=== PATIENT | male | born 1950 | race Two or more races ===

== ENCOUNTER 2023-12-26 09:19 | Inpatient (IN) | payer OTHER ==
[~2023-12-26] VITALS: Ht 175.3 cm; Wt 78.0 kg
[2023-12-26] MEDS: SODIUM CHLORIDE 0.9% 1,000 ML IV SCH (08:00)
[2023-12-26 10:07] LABS: Basophils # (auto) 0 10 ^3/uL (0-0.2); Basophils % (auto) 0.1 % (0.0-2.0); Eosinophils # (auto) 0 10 ^3/uL (0-0.8); Eosinophils % (auto) 0.3 % (0.0-7.0); Hematocrit 48.2 % (41.0-53.0); Hemoglobin 15.8 g/dL (13.5-17.5); Lymphocytes % (auto) 17.8 % (10.0-50.0); Mean Corpuscular Hgb Conc. 32.7 g/dL (32.0-36.0); Mean Corpuscular Volume 85.8 fL (80.0-100.0); Monocytes # (auto) 1.9 10 ^3/uL (0-1.3); Monocytes % (auto) 16.9 % (0.0-12.0); Neutrophils # (auto) 7.4 10 ^3/uL (1.6-8.6); Neutrophils % (auto) 64.9 % (37.0-80.0); Nucleated Red Blood Cells % 0.1 %; Red Blood Cells 5.62 10^6/uL (4.5-5.90); White Blood Cell 11.4 10^3/uL (4.4-10.8)
[2023-12-26 10:23] LABS: Alanine Aminotransferase 70 U/L (7-40); Albumin 4.9 g/dL (3.2-4.8); Alkaline Phosphatase 73 U/L (46-116); Anion Gap 8 (5-15); Aspartate Aminotransferase 35 U/L (13-40); BUN/Creatinine Ratio 17.8 (10.0-20.0); Blood Urea Nitrogen 28 mg/dL (9-23); Calcium 12.3 mg/dL (8.5-10.1); Carbon Dioxide 39 mmol/L (20-30); Chloride 86 mmol/L (98-107); Glucose 178 mg/dL (74-106); Sodium 133 mmol/L (136-145)
[2023-12-26 10:24] LABS: Bilirubin, Total 0.8 mg/dL (0.2-1.0); Total Protein 7.1 g/dL (5.7-8.2)
[2023-12-26 10:35] LABS: Urine Bacteria NONE SEEN /hpf (None Seen); Urine Blood Negative /uL (Negative); Urine Clarity HAZY (Clear); Urine Color Yellow (Yellow); Urine Hyaline Cast MANY /lpf (0 - 2); Urine Mucus FEW (None Seen); Urine Protein, UAD 1+ (Negative); Urine Specific Gravity 1.026 (1.001-1.035); Urine WBC 1 /hpf (0 - 3); Urine pH 5.5 (5.0-8.0)
[2023-12-26] MEDS ORDERED: DOCUSATE SOD 100 MG CAP PO PRN (14:15)
[2023-12-26] MEDS ORDERED: DEXTROSE (50%) 50ML SYRG IV PRN (14:15)
[2023-12-26] MEDS: PIPERACILLIN-TAZOB 3.375GM 100 ML IV ONE (14:15)
[2023-12-26 17:25] LABS: Sodium Urine < 10 mmol/L (40-220)
[2023-12-26] MEDS: SODIUM CHLORIDE 0.9% 2,000 ML IV ONE (20:19)
[2023-12-26] MEDS: InsuLIN REG 1unit/0.01ml Soln (100units/ml) SC SCH (20:25)
[2023-12-26] MEDS: ACCU-CHEK COMFORT CURVE STRIP VI SCH (20:25)
[2023-12-26 22:22] VITALS: PULSE 85; RESP 19; O2SAT 97
[2023-12-27] VITALS (8 sets, daily range): BP systolic 118–127; BP diastolic 64–75; PULSE 67–89; RESP 16–19; TEMP 97.8–98.4; O2SAT 88–96
[2023-12-27] MEDS: PIPERACILLIN-TAZOB 3.375GM 100 ML IV SCH (00:15)
[2023-12-27 06:01] LABS: Hematocrit 43.6 % (41.0-53.0); Mean Corpuscular Hemoglobin 28.2 pg (28.0-32.0); Mean Corpuscular Hgb Conc. 32.2 g/dL (32.0-36.0); Mean Corpuscular Volume 87.5 fL (80.0-100.0); Red Blood Cells 4.98 10^6/uL (4.5-5.90); White Blood Cell 10.4 10^3/uL (4.4-10.8)
[2023-12-27 06:10] LABS: Basophils % (manual) 0 (0.0-2.0); Blast Cells 0; Metamyelocytes % 0; Myelocytes % 0; Promyelocytes % 0; Reactive Lymphocytes 0
[2023-12-27 06:21] LABS: Alanine Aminotransferase 57 U/L (7-40); Alkaline Phosphatase 60 U/L (46-116); Anion Gap 6 (5-15); Aspartate Aminotransferase 31 U/L (13-40); BUN/Creatinine Ratio 28.5 (10.0-20.0); Blood Urea Nitrogen 39 mg/dL (9-23); Calcium 10.3 mg/dL (8.7-10.4); Carbon Dioxide 37 mmol/L (20-30); Chloride 92 mmol/L (98-107); Glucose 126 mg/dL (74-106); Potassium 3.7 mmol/L (3.5-5.1); Sodium 135 mmol/L (136-145); Total Protein 6.1 g/dL (5.7-8.2)
[2023-12-27 06:22] LABS: Bilirubin, Total 0.9 mg/dL (0.2-1.0)
[2023-12-27 06:49] LABS: Band Neutrophils % (manual) 33; Eosinophils % (manual) 3 (0-7); Lymphocytes % (manual) 15 (10.0-50.0); Monocytes % (manual) 21 (0-12); Platelet Estimate Adequate
[2023-12-27] MEDS: PANTOPRAZOLE 40 MG/10 ML VIAL INJ IV SCH (09:24)
[2023-12-27 10:00] LABS: Amphetamine Screen, Urine Neg (NEGATIVE); Benzodiazephine Screen, Urine Neg (NEGATIVE)
[2023-12-27 10:01] LABS: Barbiturate Scree,Urine Neg (NEGATIVE); Cannabinoid Screen, Urine Neg (NEGATIVE); Cocaine Screen, Urine Neg (NEGATIVE); Opiate Scree,Urine Neg (NEGATIVE); Phencyclidine Screen, Urine Neg (NEGATIVE)
[2023-12-27 12:18] LABS: INR 1.03 (0.9-1.15); Partial Thromboplastin Time 27.3 SEC (24.5-34.5); Prothrombin Time 10.8 sec (9.3-11.8)
[2023-12-27 15:21] LABS: Chloride 95 mmol/L (98-107); Potassium 3.8 mmol/L (3.5-5.1); Sodium 136 mmol/L (136-145)
[2023-12-27 15:22] LABS: Anion Gap 6 (5-15); Calcium 9.8 mg/dL (8.7-10.4); Carbon Dioxide 35 mmol/L (20-30)
[2023-12-27 15:27] LABS: Blood Urea Nitrogen 32 mg/dL (9-23); Glucose 117 mg/dL (74-106)
[2023-12-28] VITALS (7 sets, daily range): BP systolic 126–137; BP diastolic 70–85; PULSE 83–89; RESP 16–20; TEMP 98–98.5; O2SAT 91–98
[2023-12-28 06:22] LABS: Hematocrit 42.5 % (41.0-53.0); Hemoglobin 13.6 g/dL (13.5-17.5); Mean Corpuscular Hgb Conc. 31.9 g/dL (32.0-36.0); Mean Corpuscular Volume 87.6 fL (80.0-100.0); Red Blood Cells 4.85 10^6/uL (4.5-5.90); Red Cell Distribution Width 12.8 % (11.8-14.3); White Blood Cell 12.5 10^3/uL (4.4-10.8)
[2023-12-28 06:31] LABS: Anion Gap 4 (5-15); Carbon Dioxide 35 mmol/L (20-30); Chloride 99 mmol/L (98-107); Potassium 4.1 mmol/L (3.5-5.1); Sodium 138 mmol/L (136-145)
[2023-12-28 06:32] LABS: Calcium 9.4 mg/dL (8.7-10.4)
[2023-12-28 06:37] LABS: BUN/Creatinine Ratio 26.4 (10.0-20.0); Blood Urea Nitrogen 29 mg/dL (9-23); Glucose 88 mg/dL (74-106)
[2023-12-28 06:38] LABS: Magnesium 2.3 mg/dL (1.6-2.6)
[2023-12-28 06:55] LABS: Basophils % (manual) 0 (0.0-2.0); Blast Cells 0; Myelocytes % 0; Reactive Lymphocytes 0
[2023-12-28 14:49] LABS: Band Neutrophils % (manual) 9; Eosinophils % (manual) 3 (0-7); Lymphocytes % (manual) 18 (10.0-50.0); Metamyelocytes % 1; Monocytes % (manual) 21 (0-12); Promyelocytes % 5
[2023-12-28 14:50] LABS: Platelet Estimate Adequate
[2023-12-28] MEDS ORDERED: CLINIMIX PER PHARMACY 0 ML IV SCH (15:30)
[2023-12-28 16:30] LABS: Bilirubin, Direct 0.2 mg/dL (<0.3); Bilirubin, Total 0.5 mg/dL (0.2-1.0); Phosphorus 2.8 mg/dL (2.4-5.1); Total Protein 5.9 g/dL (5.7-8.2)
[2023-12-28] MEDS: AMINO ACID INFUSION IN D10W 1,000 ML IV SCH (20:31)
[2023-12-29] VITALS (7 sets, daily range): BP systolic 113–149; BP diastolic 68–76; PULSE 80–103; RESP 16–18; TEMP 98–98.2; O2SAT 91–99
[2023-12-29] MEDS ORDERED: DEXTROSE (50%) 50ML SYRG IV SCH
[2023-12-29] MEDS: ACCU-CHEK COMFORT CURVE STRIP VI SCH (00:29)
[2023-12-29] MEDS: InsuLIN REG 1unit/0.01ml Soln (100units/ml) SC SCH (00:32)
[2023-12-29 06:45] LABS: Hematocrit 39.7 % (41.0-53.0); Mean Corpuscular Hemoglobin 28.6 pg (28.0-32.0); Mean Corpuscular Hgb Conc. 32.7 g/dL (32.0-36.0); Mean Corpuscular Volume 87.4 fL (80.0-100.0); Red Blood Cells 4.54 10^6/uL (4.5-5.90); Red Cell Distribution Width 12.5 % (11.8-14.3); White Blood Cell 9.8 10^3/uL (4.4-10.8)
[2023-12-29 07:02] LABS: Alanine Aminotransferase 24 U/L (7-40); Albumin 3.7 g/dL (3.2-4.8); Alkaline Phosphatase 49 U/L (46-116); Anion Gap 5 (5-15); Aspartate Aminotransferase 13 U/L (13-40); BUN/Creatinine Ratio 25.6 (10.0-20.0); Blood Urea Nitrogen 23 mg/dL (9-23); Calcium 8.8 mg/dL (8.7-10.4); Carbon Dioxide 32 mmol/L (20-30); Chloride 102 mmol/L (98-107); Glucose 135 mg/dL (74-106); Magnesium 2.1 mg/dL (1.6-2.6); Potassium 3.7 mmol/L (3.5-5.1); Sodium 139 mmol/L (136-145)
[2023-12-29 07:03] LABS: Bilirubin, Total 0.4 mg/dL (0.2-1.0); Phosphorus 2.2 mg/dL (2.4-5.1); Total Protein 5.7 g/dL (5.7-8.2)
[2023-12-29 07:50] LABS: Basophils % (manual) 0 (0.0-2.0); Blast Cells 0; Reactive Lymphocytes 0
[2023-12-29] MEDS: GASTROGRAFIN 120 ML SOL ONE (13:37)
[2023-12-29 14:22] LABS: Band Neutrophils % (manual) 13; Eosinophils % (manual) 3 (0-7); Lymphocytes % (manual) 29 (10.0-50.0); Metamyelocytes % 1; Monocytes % (manual) 12 (0-12); Myelocytes % 1; Promyelocytes % 2
[2023-12-29 14:23] LABS: Platelet Estimate Adequate
[2023-12-29] MEDS: POTASSIUM PHOSPHATE 22 MEQ in SODIUM CHL 0.9% 100 ML IV ONE (15:56)
[2023-12-30] VITALS (7 sets, daily range): BP systolic 105–126; BP diastolic 58–83; PULSE 85–118; RESP 16–22; TEMP 97.9–100; O2SAT 81–96
[2023-12-30] MEDS: ONDANSETRON HCL 4 MG/2 ML VIAL IV PRN (02:37)
[2023-12-30 05:11] LABS: Hematocrit 47.9 % (41.0-53.0); Hemoglobin 15.5 g/dL (13.5-17.5); Mean Corpuscular Hemoglobin 28.4 pg (28.0-32.0); Mean Corpuscular Hgb Conc. 32.3 g/dL (32.0-36.0); Mean Corpuscular Volume 87.9 fL (80.0-100.0); Red Blood Cells 5.45 10^6/uL (4.5-5.90); Red Cell Distribution Width 12.6 % (11.8-14.3); White Blood Cell 15.6 10^3/uL (4.4-10.8)
[2023-12-30 05:13] LABS: Alanine Aminotransferase 86 U/L (7-40); Alkaline Phosphatase 88 U/L (46-116); Anion Gap 8 (5-15); Aspartate Aminotransferase 95 U/L (13-40); Blood Urea Nitrogen 25 mg/dL (9-23); Calcium 9.9 mg/dL (8.7-10.4); Carbon Dioxide 30 mmol/L (20-30); Chloride 102 mmol/L (98-107); Glucose 166 mg/dL (74-106); Magnesium 2.3 mg/dL (1.6-2.6); Potassium 3.8 mmol/L (3.5-5.1); Sodium 140 mmol/L (136-145)
[2023-12-30 05:14] LABS: Albumin 4.7 g/dL (3.2-4.8); Bilirubin, Total 0.7 mg/dL (0.2-1.0); Phosphorus 3.1 mg/dL (2.4-5.1); Total Protein 7.3 g/dL (5.7-8.2)
[2023-12-30 05:20] LABS: Basophils % (manual) 0 (0.0-2.0); Blast Cells 0; Metamyelocytes % 0; Promyelocytes % 0; Reactive Lymphocytes 0
[2023-12-30 06:54] LABS: Band Neutrophils % (manual) 11; Eosinophils % (manual) 2 (0-7); Lymphocytes % (manual) 18 (10.0-50.0); Monocytes % (manual) 13 (0-12); Myelocytes % 2; Platelet Estimate Adequate
[2023-12-30] MEDS ORDERED: MIDAZOLAM HCL 2MG/2ML 2ml VIAL (1mg/ml) ONE (12:29)
[2023-12-30] MEDS ORDERED: KETAMINE 50mg/ML 10ml Vial 0 ML ONE (12:29)
[2023-12-30] MEDS ORDERED: fentaNYL CITRATE 0 ML ONE (12:29)
[2023-12-30] MEDS ORDERED: HYDROmorphone HCL 2 MG/ML VL/or syr ONE (12:29)
[2023-12-30] MEDS ORDERED: DexAMETHasone SOD PHOS 10MG/1ML VIAL INJ ONE (12:29)
[2023-12-30] MEDS ORDERED: fentaNYL CITRATE 100 MCG/2 ML VL ONE (12:29)
[2023-12-30] MEDS ORDERED: SODIUM CHLORIDE LOCK 0 ML ONE (12:29)
[2023-12-31] VITALS (10 sets, daily range): BP systolic 87–127; BP diastolic 60–85; PULSE 83–107; RESP 10–20; TEMP 97.8–98.5; O2SAT 94–98
[2023-12-31 06:11] LABS: Chloride 98 mmol/L (98-107); Potassium 3.5 mmol/L (3.5-5.1); Sodium 137 mmol/L (136-145)
[2023-12-31 06:12] LABS: Anion Gap 6 (5-15); Calcium 8.9 mg/dL (8.7-10.4); Carbon Dioxide 33 mmol/L (20-30)
[2023-12-31 06:16] LABS: Hematocrit 43.2 % (41.0-53.0); Mean Corpuscular Hemoglobin 28.5 pg (28.0-32.0); Mean Corpuscular Hgb Conc. 32.5 g/dL (32.0-36.0); Mean Corpuscular Volume 87.8 fL (80.0-100.0); Red Blood Cells 4.92 10^6/uL (4.5-5.90); Red Cell Distribution Width 12.7 % (11.8-14.3); White Blood Cell 26.9 10^3/uL (4.4-10.8)
[2023-12-31 06:17] LABS: BUN/Creatinine Ratio 29.7 (10.0-20.0); Blood Urea Nitrogen 33 mg/dL (9-23); Glucose 159 mg/dL (74-106); Magnesium 2.4 mg/dL (1.6-2.6)
[2023-12-31 06:35] LABS: Band Neutrophils % (manual) 0; Basophils % (manual) 0 (0.0-2.0); Blast Cells 0; Eosinophils % (manual) 0 (0-7); Metamyelocytes % 0; Myelocytes % 0; Promyelocytes % 0; Reactive Lymphocytes 0
[2023-12-31 09:11] LABS: Lymphocytes % (manual) 11 (10.0-50.0); Monocytes % (manual) 9 (0-12); Platelet Estimate Adequate
[2023-12-31] MEDS: POTASSIUM PHOSPHATE 44 MEQ in D5W 5% 250 ML IV ONE (10:41)
[2023-12-31] MEDS ORDERED: METF-370 PO (12:19)
[2023-12-31] MEDS ORDERED: TAMS1CAP25 PO (12:19)
[2023-12-31] MEDS ORDERED: ASPI-543 PO (12:19)
[2023-12-31] MEDS ORDERED: ISOS5TAB PO (12:19)
[2023-12-31] MEDS ORDERED: DONE1TAB88 PO (12:19)
[2023-12-31] MEDS ORDERED: OXYB2.5T PO (12:19)
[2023-12-31] MEDS ORDERED: TICA90TA PO (12:19)
[2023-12-31] MEDS ORDERED: PROP1TAB53 PO (12:19)
[2023-12-31] MEDS ORDERED: FINA5TAB4 PO (12:19)
[2023-12-31] MEDS ORDERED: ALPR0.5T7 PO (12:19)
[2023-12-31 12:36] LABS: INR 1.08 (0.9-1.15); Partial Thromboplastin Time 29.8 SEC (24.5-34.5); Prothrombin Time 11.3 sec (9.3-11.8)
[2023-12-31] MEDS: metroNIDAZOLE 500MG/100ML 100 ML IV ONE (13:13)
[2023-12-31] MEDS ORDERED: MIDAZOLAM HCL 2MG/2ML 2ml VIAL (1mg/ml) ONE (13:23)
[2023-12-31] MEDS ORDERED: fentaNYL CITRATE 100 MCG/2 ML VL ONE (13:23)
[2023-12-31] MEDS ORDERED: MEPERIDINE HCL (50 MG/ML) 1 ML VIAL ONE (13:23)
[2023-12-31] MEDS ORDERED: DexAMETHasone SOD PHOS 10MG/1ML VIAL INJ ONE (14:42)
[2023-12-31] MEDS ORDERED: ONDANSETRON HCL 4 MG/2 ML VIAL ONE (14:42)
[2023-12-31] MEDS ORDERED: ETOMIDATE (2MG/ML) 20ML VIAL IV ONE (14:42)
[2023-12-31] MEDS ORDERED: ROCURONIUM 10MG/ML 10ML VIAL IV ONE (14:43)
[2023-12-31] MEDS ORDERED: LABETALOL HCL 5 MG/ML 4ML SYRINGE IV PRN (15:00)
[2023-12-31] MEDS ORDERED: ONDANSETRON HCL 4 MG/2 ML VIAL IV PRN ×2 (15:00→15:30)
[2023-12-31] MEDS ORDERED: MIDAZOLAM HCL 2MG/2ML 2ml VIAL (1mg/ml) IV PRN (15:00)
[2023-12-31] MEDS ORDERED: ePHEDrine SULFATE 50 MG/ML AMP IV PRN (15:00)
[2023-12-31] MEDS ORDERED: MORPHINE SULFATE 4 MG/ML SYR/VIAL IV PRN (15:00)
[2023-12-31] MEDS ORDERED: SUGAMMADEX 200mg/2ml Vial (100MG/ML) IV ONE (15:13)
[2023-12-31] MEDS: D5W/SOD CHL 0.45%/KCL 20MEQ 1,000 ML IV SCH (15:30)
[2023-12-31] MEDS: HYDROmorphone HCL 2 MG/ML VL/or syr IV PRN (16:22)
[2023-12-31] MEDS ORDERED: PHENYLEPHRINE HCL 10 MG/ML VL IV ONE (16:39)
[2023-12-31] MEDS ORDERED: SUCCINYLCHOLINE CHLORIDE 20 MG/ML 10ML VIAL IV ONE (16:39)
[2024-01-01] VITALS (17 sets, daily range): BP systolic 86–113; BP diastolic 44–67; PULSE 84–98; RESP 13–21; TEMP 97.7–98.9; O2SAT 90–99
[2024-01-01 06:17] LABS: Alanine Aminotransferase 92 U/L (7-40); Alkaline Phosphatase 68 U/L (46-116); Anion Gap 6 (5-15); Aspartate Aminotransferase 35 U/L (13-40); BUN/Creatinine Ratio 17.7 (10.0-20.0); Blood Urea Nitrogen 31 mg/dL (9-23); Carbon Dioxide 28 mmol/L (20-30); Chloride 99 mmol/L (98-107); Glucose 251 mg/dL (74-106); Magnesium 2.2 mg/dL (1.6-2.6); Potassium 4.1 mmol/L (3.5-5.1); Sodium 133 mmol/L (136-145)
[2024-01-01 06:18] LABS: Albumin 3.4 g/dL (3.2-4.8); Bilirubin, Total 0.5 mg/dL (0.2-1.0); Phosphorus 3.5 mg/dL (2.4-5.1); Total Protein 5.3 g/dL (5.7-8.2)
[2024-01-01 07:10] LABS: Hematocrit 44.2 % (41.0-53.0); Hemoglobin 13.7 g/dL (13.5-17.5); Mean Corpuscular Hemoglobin 28.2 pg (28.0-32.0); Mean Corpuscular Volume 90.8 fL (80.0-100.0); Red Blood Cells 4.87 10^6/uL (4.5-5.90); Red Cell Distribution Width 13.3 % (11.8-14.3)
[2024-01-01 07:34] LABS: White Blood Cell 31.4 10^3/uL (4.4-10.8)
[2024-01-01 07:36] LABS: Basophils % (manual) 0 (0.0-2.0); Blast Cells 0; Eosinophils % (manual) 0 (0-7); Metamyelocytes % 0; Myelocytes % 0; Promyelocytes % 0; Reactive Lymphocytes 0
[2024-01-01] MEDS: HYDROmorphone HCL 2 MG/ML VL/or syr IV PRN (08:06)
[2024-01-01 08:26] LABS: Band Neutrophils % (manual) 3; Lymphocytes % (manual) 9 (10.0-50.0); Monocytes % (manual) 4 (0-12)
[2024-01-01 08:27] LABS: Platelet Estimate Adequate; RBC Morphology Normal
[2024-01-01] MEDS: PANTOPRAZOLE 40 MG/10 ML VIAL INJ IV SCH (10:34)
[2024-01-01] MEDS: CALCIUM GLUC 1,000mg/50ml-NS 50 ML IV ONE (13:00)
[2024-01-01] MEDS: MORPHINE SULFATE INJ 2 MG/ml SYRG IV PRN (14:58)
[2024-01-01 20:14] LABS: Chloride 98 mmol/L (98-107); Potassium 4.2 mmol/L (3.5-5.1); Sodium 135 mmol/L (136-145)
[2024-01-01 20:15] LABS: Anion Gap 4 (5-15); Carbon Dioxide 33 mmol/L (20-30)
[2024-01-01 20:16] LABS: Calcium 8.6 mg/dL (8.5-10.1)
[2024-01-01 20:20] LABS: Glucose 162 mg/dL (74-106)
[2024-01-01 20:21] LABS: BUN/Creatinine Ratio 17.1 (10.0-20.0)
[2024-01-01 20:27] LABS: Blood Urea Nitrogen 43 mg/dL (9-23)
[2024-01-02] VITALS (20 sets, daily range): BP systolic 116–151; BP diastolic 56–76; PULSE 88–98; RESP 14–28; TEMP 98.5–100.4; O2SAT 92–99
[2024-01-02 06:31] LABS: Urine Amorphous Crystal FEW /hpf (None Seen); Urine Bacteria FEW /hpf (None Seen); Urine Blood 3+ /uL (Negative); Urine Clarity HAZY (Clear); Urine Color Yellow (Yellow); Urine Protein, UAD 1+ (Negative); Urine Specific Gravity 1.016 (1.001-1.035); Urine Urobilinogen Normal (Negative); Urine WBC 49 /hpf (0 - 3); Urine pH 5.5 (5.0-8.0)
[2024-01-02 10:43] LABS: Basophils # (auto) 0 10 ^3/uL (0-0.2); Basophils % (auto) 0.2 % (0.0-2.0); Eosinophils # (auto) 0 10 ^3/uL (0-0.8); Eosinophils % (auto) 0.2 % (0.0-7.0); Hematocrit 38.4 % (41.0-53.0); Hemoglobin 12.2 g/dL (13.5-17.5); Lymphocytes # (auto) 1.4 10 ^3/uL (0.4-5.4); Lymphocytes % (auto) 7.1 % (10.0-50.0); Mean Corpuscular Hemoglobin 28.1 pg (28.0-32.0); Mean Corpuscular Hgb Conc. 31.9 g/dL (32.0-36.0); Mean Corpuscular Volume 88.2 fL (80.0-100.0); Monocytes # (auto) 1.4 10 ^3/uL (0-1.3); Monocytes % (auto) 6.7 % (0.0-12.0); Neutrophils # (auto) 17.3 10 ^3/uL (1.6-8.6); Neutrophils % (auto) 85.8 % (37.0-80.0); Red Blood Cells 4.35 10^6/uL (4.5-5.90); Red Cell Distribution Width 12.9 % (11.8-14.3); White Blood Cell 20.2 10^3/uL (4.4-10.8)
[2024-01-02 11:00] LABS: INR 1.07 (0.9-1.15); Partial Thromboplastin Time 31.1 SEC (24.5-34.5); Prothrombin Time 11.2 sec (9.3-11.8)
[2024-01-02 11:03] LABS: Alanine Aminotransferase 46 U/L (7-40); Albumin 3.4 g/dL (3.2-4.8); Alkaline Phosphatase 60 U/L (46-116); Anion Gap 6 (5-15); Aspartate Aminotransferase 19 U/L (13-40); BUN/Creatinine Ratio 18.8 (10.0-20.0); Blood Urea Nitrogen 48 mg/dL (9-23); Calcium 8.4 mg/dL (8.5-10.1); Carbon Dioxide 29 mmol/L (20-30); Chloride 98 mmol/L (98-107); GFR African American 32 mL/min; GFR Non-African American 26 mL/min; Glucose 177 mg/dL (74-106); Potassium 4.1 mmol/L (3.5-5.1); Sodium 133 mmol/L (136-145)
[2024-01-02 11:04] LABS: Bilirubin, Total 0.6 mg/dL (0.2-1.0); Phosphorus 1.9 mg/dL (2.4-5.1); Total Protein 5.5 g/dL (5.7-8.2)
[2024-01-02 11:37] LABS: Magnesium 1.9 mg/dL (1.6-2.6)
[2024-01-02] MEDS: SODIUM PHOSP 20MEQ(15MMOL) IN NS 100 ML IV ONE (16:11)
[2024-01-03] VITALS (30 sets, daily range): BP systolic 123–163; BP diastolic 66–86; PULSE 82–105; RESP 12–26; TEMP 97.3–100.3; O2SAT 91–98
[2024-01-03 04:45] LABS: Basophils # (auto) 0 10 ^3/uL (0-0.2); Basophils % (auto) 0.1 % (0.0-2.0); Eosinophils # (auto) 0.1 10 ^3/uL (0-0.8); Eosinophils % (auto) 0.6 % (0.0-7.0); Hematocrit 38.2 % (41.0-53.0); Hemoglobin 12.2 g/dL (13.5-17.5); Lymphocytes # (auto) 1.6 10 ^3/uL (0.4-5.4); Lymphocytes % (auto) 9.9 % (10.0-50.0); Mean Corpuscular Hemoglobin 28.2 pg (28.0-32.0); Mean Corpuscular Volume 88.1 fL (80.0-100.0); Monocytes # (auto) 1.5 10 ^3/uL (0-1.3); Monocytes % (auto) 9.6 % (0.0-12.0); Neutrophils # (auto) 12.6 10 ^3/uL (1.6-8.6); Neutrophils % (auto) 79.8 % (37.0-80.0); Red Blood Cells 4.33 10^6/uL (4.5-5.90); White Blood Cell 15.7 10^3/uL (4.4-10.8)
[2024-01-03 05:26] LABS: Alanine Aminotransferase 45 U/L (7-40); Albumin 3.3 g/dL (3.2-4.8); Alkaline Phosphatase 69 U/L (46-116); Anion Gap 4 (5-15); Aspartate Aminotransferase 26 U/L (13-40); BUN/Creatinine Ratio 17.4 (10.0-20.0); Blood Urea Nitrogen 40 mg/dL (9-23); Calcium 8.1 mg/dL (8.7-10.4); Carbon Dioxide 28 mmol/L (20-30); Chloride 101 mmol/L (98-107); Glucose 198 mg/dL (74-106); Magnesium 1.9 mg/dL (1.6-2.6); Phosphorus 2.4 mg/dL (2.4-5.1); Sodium 133 mmol/L (136-145)
[2024-01-03 05:27] LABS: Bilirubin, Total 0.5 mg/dL (0.2-1.0); Total Protein 5.3 g/dL (5.7-8.2)
[2024-01-03] MEDS: SODIUM PHOSPHATES 20 MEQ in SODIUM CHL 0.9% 100 ML IV ONE (16:57)
[2024-01-04] VITALS (32 sets, daily range): BP systolic 108–149; BP diastolic 63–90; PULSE 81–102; RESP 14–28; TEMP 98–99.5; O2SAT 90–98
[2024-01-04 05:59] LABS: Basophils # (auto) 0 10 ^3/uL (0-0.2); Basophils % (auto) 0.2 % (0.0-2.0); Eosinophils # (auto) 0.1 10 ^3/uL (0-0.8); Eosinophils % (auto) 0.7 % (0.0-7.0); Hematocrit 39.2 % (41.0-53.0); Hemoglobin 12.5 g/dL (13.5-17.5); Lymphocytes # (auto) 1.7 10 ^3/uL (0.4-5.4); Lymphocytes % (auto) 11.2 % (10.0-50.0); Mean Corpuscular Hgb Conc. 31.9 g/dL (32.0-36.0); Mean Corpuscular Volume 87.5 fL (80.0-100.0); Monocytes # (auto) 1.6 10 ^3/uL (0-1.3); Monocytes % (auto) 10.7 % (0.0-12.0); Neutrophils # (auto) 11.6 10 ^3/uL (1.6-8.6); Neutrophils % (auto) 77.2 % (37.0-80.0); Red Blood Cells 4.48 10^6/uL (4.5-5.90); Red Cell Distribution Width 12.8 % (11.8-14.3)
[2024-01-04 06:46] LABS: Alanine Aminotransferase 77 U/L (7-40); Albumin 3.3 g/dL (3.2-4.8); Alkaline Phosphatase 87 U/L (46-116); Anion Gap 6 (5-15); Aspartate Aminotransferase 55 U/L (13-40); BUN/Creatinine Ratio 16.7 (10.0-20.0); Calcium 8.2 mg/dL (8.7-10.4); Carbon Dioxide 26 mmol/L (20-30); Chloride 105 mmol/L (98-107); GFR African American 48 mL/min; GFR Non-African American 39 mL/min; Glucose 195 mg/dL (74-106); Magnesium 1.8 mg/dL (1.6-2.6); Potassium 3.8 mmol/L (3.5-5.1); Sodium 137 mmol/L (136-145)
[2024-01-04 06:47] LABS: Bilirubin, Total 0.8 mg/dL (0.2-1.0); Blood Urea Nitrogen 30 mg/dL (9-23); Total Protein 5.5 g/dL (5.7-8.2)
[2024-01-04 11:57] LABS: COVID19 ANTIGEN SOFIA FIA NEGATIVE (NEGATIVE)
[2024-01-04] MEDS: MAGNESIUM SULFATE 1GM/100ML 100 ML IV ONE ×2 (12:23)
[2024-01-04] MEDS: SODIUM PHOSPHATES 20 MEQ in SODIUM CHL 0.9% 100 ML IV ONE (12:24)
[2024-01-04] MEDS: POTASSIUM PHOSPHATE 22 MEQ in SODIUM CHL 0.9% 100 ML IV ONE (14:15)
[2024-01-05] VITALS (18 sets, daily range): BP systolic 103–161; BP diastolic 62–81; PULSE 81–93; RESP 14–24; TEMP 36.7; O2SAT 0–96
[2024-01-05 05:51] LABS: Alanine Aminotransferase 86 U/L (7-40); Albumin 3.3 g/dL (3.2-4.8); Alkaline Phosphatase 81 U/L (46-116); Anion Gap 5 (5-15); Aspartate Aminotransferase 50 U/L (13-40); BUN/Creatinine Ratio 15.2 (10.0-20.0); Bilirubin, Total 0.8 mg/dL (0.2-1.0); Blood Urea Nitrogen 24 mg/dL (9-23); Calcium 8.3 mg/dL (8.7-10.4); Carbon Dioxide 27 mmol/L (20-30); Chloride 106 mmol/L (98-107); Glucose 194 mg/dL (74-106); Magnesium 1.7 mg/dL (1.6-2.6); Phosphorus 2.7 mg/dL (2.4-5.1); Potassium 3.9 mmol/L (3.5-5.1); Sodium 138 mmol/L (136-145); Total Protein 5.5 g/dL (5.7-8.2)
[2024-01-05] MEDS: AMPICILLIN SOD 2GM INJ 2 GM in SODIUM CHL 0.9% 100 ML IV ONE (11:13)
[2024-01-05] MEDS: AMPICILLIN SOD 2GM INJ 2 GM in SODIUM CHL 0.9% 100 ML IV SCH (12:00)
[2024-01-06 05:00] VITALS: BP 164/77; PULSE 93; RESP 20; TEMP 98.2; O2SAT 92
[2024-01-06 06:31] LABS: Basophils # (auto) 0 10 ^3/uL (0-0.2); Basophils % (auto) 0.2 % (0.0-2.0); Eosinophils # (auto) 0.2 10 ^3/uL (0-0.8); Eosinophils % (auto) 1.4 % (0.0-7.0); Hematocrit 35.8 % (41.0-53.0); Hemoglobin 11.6 g/dL (13.5-17.5); Lymphocytes # (auto) 1.6 10 ^3/uL (0.4-5.4); Lymphocytes % (auto) 11.2 % (10.0-50.0); Mean Corpuscular Hemoglobin 28.3 pg (28.0-32.0); Mean Corpuscular Hgb Conc. 32.5 g/dL (32.0-36.0); Monocytes # (auto) 1.6 10 ^3/uL (0-1.3); Monocytes % (auto) 11.1 % (0.0-12.0); Neutrophils # (auto) 10.8 10 ^3/uL (1.6-8.6); Neutrophils % (auto) 76.1 % (37.0-80.0); Red Blood Cells 4.11 10^6/uL (4.5-5.90); Red Cell Distribution Width 12.8 % (11.8-14.3); White Blood Cell 14.1 10^3/uL (4.4-10.8)
[2024-01-06 06:47] LABS: Alanine Aminotransferase 72 U/L (7-40); Albumin 3.3 g/dL (3.2-4.8); Alkaline Phosphatase 76 U/L (46-116); Anion Gap 6 (5-15); Aspartate Aminotransferase 38 U/L (13-40); BUN/Creatinine Ratio 15.9 (10.0-20.0); Blood Urea Nitrogen 22 mg/dL (9-23); Calcium 8.4 mg/dL (8.7-10.4); Carbon Dioxide 27 mmol/L (20-30); Chloride 107 mmol/L (98-107); Glucose 182 mg/dL (74-106); Magnesium 1.6 mg/dL (1.6-2.6); Potassium 3.6 mmol/L (3.5-5.1); Sodium 140 mmol/L (136-145)
[2024-01-06 06:48] LABS: Bilirubin, Total 0.7 mg/dL (0.2-1.0); Phosphorus 1.7 mg/dL (2.4-5.1); Total Protein 5.4 g/dL (5.7-8.2)
[2024-01-06 08:49] VITALS: BP 142/75; PULSE 87; RESP 17; TEMP 99; O2SAT 91
[2024-01-06] MEDS: GASTROGRAFIN 120 ML SOL ONE (08:50)
[2024-01-06 13:00] VITALS: BP 145/83; PULSE 98; RESP 18; TEMP 98.6; O2SAT 93
[2024-01-06] MEDS: MAGNESIUM SULFATE 1GM/100ML 100 ML IV SCH (14:17)
[2024-01-06 16:58] VITALS: BP 146/81; PULSE 89; RESP 17; TEMP 98; O2SAT 93
[2024-01-06] MEDS: POTASSIUM PHOSPHATE 44 MEQ in D5W 5% 250 ML IV ONE (19:03)
[2024-01-06 20:10] VITALS: RESP 20
[2024-01-06 22:00] VITALS: BP 161/86; PULSE 94; RESP 16; TEMP 98.6; O2SAT 96
[2024-01-07 05:00] VITALS: BP 146/74; PULSE 91; RESP 18; TEMP 98.3; O2SAT 94
[2024-01-07 06:26] LABS: Basophils # (auto) 0.1 10 ^3/uL (0-0.2); Basophils % (auto) 0.4 % (0.0-2.0); Eosinophils # (auto) 0.2 10 ^3/uL (0-0.8); Eosinophils % (auto) 1.3 % (0.0-7.0); Hematocrit 36.6 % (41.0-53.0); Hemoglobin 11.6 g/dL (13.5-17.5); Lymphocytes # (auto) 1.5 10 ^3/uL (0.4-5.4); Lymphocytes % (auto) 11.5 % (10.0-50.0); Mean Corpuscular Hemoglobin 27.9 pg (28.0-32.0); Mean Corpuscular Hgb Conc. 31.7 g/dL (32.0-36.0); Monocytes # (auto) 1.2 10 ^3/uL (0-1.3); Monocytes % (auto) 9.1 % (0.0-12.0); Neutrophils # (auto) 10.4 10 ^3/uL (1.6-8.6); Neutrophils % (auto) 77.7 % (37.0-80.0); Red Blood Cells 4.16 10^6/uL (4.5-5.90); White Blood Cell 13.4 10^3/uL (4.4-10.8)
[2024-01-07 06:33] LABS: Alanine Aminotransferase 75 U/L (7-40); Albumin 3.6 g/dL (3.2-4.8); Alkaline Phosphatase 89 U/L (46-116); Anion Gap 6 (5-15); Aspartate Aminotransferase 46 U/L (13-40); BUN/Creatinine Ratio 16.2 (10.0-20.0); Bilirubin, Total 0.7 mg/dL (0.2-1.0); Blood Urea Nitrogen 22 mg/dL (9-23); Calcium 8.5 mg/dL (8.5-10.1); Carbon Dioxide 27 mmol/L (20-30); Chloride 109 mmol/L (98-107); Glucose 132 mg/dL (74-106); Phosphorus 3.2 mg/dL (2.4-5.1); Potassium 3.9 mmol/L (3.5-5.1); Sodium 142 mmol/L (136-145)
[2024-01-07 07:42] LABS: Magnesium 1.6 mg/dL (1.6-2.6)
[2024-01-07 09:07] VITALS: BP 153/76; PULSE 81; RESP 17; TEMP 98.4; O2SAT 96
[2024-01-07] MEDS: MAGNESIUM SULFATE 1GM/100ML 100 ML IV ONE (16:12)
[2024-01-07 17:02] VITALS: BP 154/82; PULSE 90; RESP 19; TEMP 98.4; O2SAT 97
[2024-01-07 20:10] VITALS: PULSE 95; RESP 22
[2024-01-07 22:00] VITALS: BP 156/75; PULSE 95; RESP 24; TEMP 98.6; O2SAT 96
[2024-01-08 05:00] VITALS: BP 156/75; PULSE 91; RESP 18; TEMP 98.5; O2SAT 95
[2024-01-08 06:34] LABS: Basophils # (auto) 0 10 ^3/uL (0-0.2); Basophils % (auto) 0.3 % (0.0-2.0); Eosinophils # (auto) 0.3 10 ^3/uL (0-0.8); Eosinophils % (auto) 1.8 % (0.0-7.0); Hematocrit 34.4 % (41.0-53.0); Hemoglobin 11.1 g/dL (13.5-17.5); Lymphocytes # (auto) 1.3 10 ^3/uL (0.4-5.4); Lymphocytes % (auto) 8.1 % (10.0-50.0); Mean Corpuscular Hemoglobin 28.5 pg (28.0-32.0); Mean Corpuscular Hgb Conc. 32.2 g/dL (32.0-36.0); Mean Corpuscular Volume 88.6 fL (80.0-100.0); Monocytes # (auto) 1.3 10 ^3/uL (0-1.3); Monocytes % (auto) 8.1 % (0.0-12.0); Neutrophils # (auto) 13.5 10 ^3/uL (1.6-8.6); Neutrophils % (auto) 81.7 % (37.0-80.0); Red Blood Cells 3.88 10^6/uL (4.5-5.90); Red Cell Distribution Width 13.3 % (11.8-14.3); White Blood Cell 16.5 10^3/uL (4.4-10.8)
[2024-01-08 06:39] LABS: Potassium 4.1 mmol/L (3.5-5.1)
[2024-01-08 06:40] LABS: Calcium 8.2 mg/dL (8.7-10.4)
[2024-01-08 06:45] LABS: BUN/Creatinine Ratio 17.2 (10.0-20.0); Magnesium 1.6 mg/dL (1.6-2.6)
[2024-01-08 06:46] LABS: Albumin 3.3 g/dL (3.2-4.8)
[2024-01-08 06:47] LABS: Phosphorus 2.6 mg/dL (2.4-5.1)
[2024-01-08 09:00] VITALS: BP 136/81; PULSE 85; RESP 18; TEMP 98.3; O2SAT 96
[2024-01-08] MEDS ORDERED: levoFLOXacin 250 MG TAB PO SCH (10:00)
[2024-01-08] MEDS ORDERED: AMOXICILLIN/CLAVUL 875 MG TAB PO SCH (10:00)
[2024-01-08] MEDS: AMOXICILLIN/CLAVUL 875 MG TAB PO ONE (12:04)
[2024-01-08] MEDS: levoFLOXacin 250 MG TAB PO ONE (12:04)
[2024-01-08 13:00] VITALS: BP 146/86; PULSE 95; RESP 20; TEMP 98.2; O2SAT 96
[2024-01-08] MEDS: MAGNESIUM SULFATE 1GM/100ML 100 ML IV ONE (16:04)
[2024-01-08 17:00] VITALS: BP 149/86; PULSE 85; RESP 18; TEMP 98.3; O2SAT 94
[2024-01-08 22:00] VITALS: BP 146/72; PULSE 98; RESP 18; TEMP 98.7; O2SAT 90
[2024-01-08] MEDS: AMOXICILLIN/CLAVUL 875 MG TAB PO SCH (22:38)
[2024-01-09 05:00] VITALS: BP 142/75; PULSE 91; RESP 18; TEMP 98.1; O2SAT 92
[2024-01-09 07:14] LABS: Basophils # (auto) 0 10 ^3/uL (0-0.2); Basophils % (auto) 0.2 % (0.0-2.0); Eosinophils # (auto) 0.1 10 ^3/uL (0-0.8); Eosinophils % (auto) 0.8 % (0.0-7.0); Hematocrit 34.9 % (41.0-53.0); Hemoglobin 11.1 g/dL (13.5-17.5); Lymphocytes # (auto) 1.7 10 ^3/uL (0.4-5.4); Lymphocytes % (auto) 10.3 % (10.0-50.0); Mean Corpuscular Hemoglobin 27.7 pg (28.0-32.0); Mean Corpuscular Hgb Conc. 31.9 g/dL (32.0-36.0); Monocytes # (auto) 1.3 10 ^3/uL (0-1.3); Monocytes % (auto) 7.9 % (0.0-12.0); Neutrophils # (auto) 12.9 10 ^3/uL (1.6-8.6); Neutrophils % (auto) 80.8 % (37.0-80.0); Red Blood Cells 4.01 10^6/uL (4.5-5.90); Red Cell Distribution Width 12.9 % (11.8-14.3)
[2024-01-09 07:21] LABS: Chloride 104 mmol/L (98-107); Potassium 3.8 mmol/L (3.5-5.1); Sodium 138 mmol/L (136-145)
[2024-01-09 07:22] LABS: Anion Gap 7 (5-15); Carbon Dioxide 27 mmol/L (20-30)
[2024-01-09 07:23] LABS: Calcium 8.6 mg/dL (8.7-10.4)
[2024-01-09 07:27] LABS: BUN/Creatinine Ratio 14.3 (10.0-20.0); Blood Urea Nitrogen 18 mg/dL (9-23); Glucose 127 mg/dL (74-106)
[2024-01-09 07:28] LABS: Magnesium 1.7 mg/dL (1.6-2.6)
[2024-01-09 07:30] LABS: Phosphorus 1.8 mg/dL (2.4-5.1)
[2024-01-09 09:00] VITALS: BP 152/87; PULSE 92; RESP 18; TEMP 98.2; O2SAT 91
[2024-01-09] MEDS: PANTOPRAZOLE 40 MG TAB PO SCH (09:43)
[2024-01-09] MEDS: ENOXAPARIN SOD 40 MG/0.4 ML SYRINGE SC ONE (09:44)
[2024-01-09] MEDS: levoFLOXacin 250 MG TAB PO SCH (09:44)
[2024-01-09 13:00] VITALS: BP 139/72; PULSE 87; RESP 18; TEMP 97.9; O2SAT 91
[2024-01-09 17:00] VITALS: BP 132/79; PULSE 98; RESP 18; TEMP 98.8; O2SAT 92
[2024-01-09 22:00] VITALS: BP 119/59; PULSE 92; RESP 18; TEMP 98.9; O2SAT 92
[2024-01-10 05:00] VITALS: BP 143/69; PULSE 85; RESP 18; TEMP 98.2; O2SAT 90
[2024-01-10 05:26] LABS: Basophils # (auto) 0.1 10 ^3/uL (0-0.2); Basophils % (auto) 0.5 % (0.0-2.0); Eosinophils # (auto) 0.1 10 ^3/uL (0-0.8); Eosinophils % (auto) 0.9 % (0.0-7.0); Hematocrit 33.5 % (41.0-53.0); Hemoglobin 10.7 g/dL (13.5-17.5); Lymphocytes % (auto) 16.2 % (10.0-50.0); Mean Corpuscular Hgb Conc. 31.9 g/dL (32.0-36.0); Mean Corpuscular Volume 87.9 fL (80.0-100.0); Monocytes # (auto) 1.1 10 ^3/uL (0-1.3); Monocytes % (auto) 8.6 % (0.0-12.0); Neutrophils # (auto) 9.3 10 ^3/uL (1.6-8.6); Neutrophils % (auto) 73.8 % (37.0-80.0); Red Blood Cells 3.81 10^6/uL (4.5-5.90); Red Cell Distribution Width 13.2 % (11.8-14.3); White Blood Cell 12.5 10^3/uL (4.4-10.8)
[2024-01-10 05:55] LABS: Anion Gap 7 (5-15); Calcium 8.9 mg/dL (8.5-10.1); Carbon Dioxide 26 mmol/L (20-30); Chloride 105 mmol/L (98-107); Potassium 3.9 mmol/L (3.5-5.1); Sodium 138 mmol/L (136-145)
[2024-01-10 06:01] LABS: BUN/Creatinine Ratio 10.2 (10.0-20.0); Blood Urea Nitrogen 13 mg/dL (9-23); Glucose 130 mg/dL (74-106)
[2024-01-10 06:30] LABS: Magnesium 1.4 mg/dL (1.6-2.6)
[2024-01-10 07:30] VITALS: PULSE 78
[2024-01-10 09:05] VITALS: BP 125/85; PULSE 78; RESP 16; TEMP 98.3; O2SAT 98
[2024-01-10] MEDS: ENOXAPARIN SOD 40 MG/0.4 ML SYRINGE SC SCH (11:01)
[2024-01-10 12:55] VITALS: BP 141/75; PULSE 91; RESP 17; TEMP 98.1; O2SAT 94
[2024-01-10] MEDS ORDERED: LEVO500T91 PO (16:35)
[2024-01-10 16:45] VITALS: BP 123/78; PULSE 85; RESP 17; TEMP 98.2; O2SAT 95
[2024-01-10 17:41] VITALS: BP 125/70; PULSE 78; RESP 16; TEMP 98.3; O2SAT 98
== END 2024-01-10 20:55 | disposition home or self-care (01) | DRG 335 ==
LOC: ER 09:19 → OVERFLOW 14:14 → WEST WING 21:58 → DOU IN ICU 12-31 19:14 → TELE-CENTR 01-05 15:40 → CENTRAL 01-06 14:16
PROVIDERS: ADMIT Internal Medicine; ATTEND Internal Medicine
PROC: 0DN80ZZ Release Small Intestine, Open Approach (ICD-10-PCS; 2023-12-31)
PROC: 05H933Z Insertion of Infusion Device into Right Brachial Vein, Percutaneous Approach (ICD-10-PCS; principal; 2024-01-04)
PROC: B54MZZA Ultrasonography of Right Upper Extremity Veins, Guidance (ICD-10-PCS; 2024-01-04)
DX: K56.609 Unspecified intestinal obstruction, unspecified as to partial versus complete obstruction (principal); N17.0 Acute kidney failure with tubular necrosis; E87.1 Hypo-osmolality and hyponatremia; E86.0 Dehydration; E83.52 Hypercalcemia; Z20.822 Contact with and (suspected) exposure to COVID-19; E11.65 Type 2 diabetes mellitus with hyperglycemia; K56.3 Gallstone ileus; I10 Essential (primary) hypertension; E78.5 Hyperlipidemia, unspecified; I25.10 Atherosclerotic heart disease of native coronary artery without angina pectoris; Z95.5 Presence of coronary angioplasty implant and graft; Z82.49 Family history of ischemic heart disease and other diseases of the circulatory system; Z83.3 Family history of diabetes mellitus
CPT/HCPCS: 36415; 71045; 74018; 74176; 74248; 74250; 76705; 76775; 78226; 80048; 80053; 80069; 80076; 80307; 81001; 82306; 82570; 82962; 83605; 83690; 83735; 84100; 84300; 84484; 85007; 85025; 85027; 85610; 85730; 86850; 86900; 86901; 87040; 87070; 87075; 87077; 87081; 87086; 87186; 87205; 87426; 93005; 93306; 93971; 97110; 97116; 97163; 97530; C9113; G0378; J0330; J1100; J1815; J2250; J2405; J2543; J3490; J7060

== ENCOUNTER → 2024-05-19 | Outpatient (CLI) | payer OTHER ==
[~2024-05-19] MED LIST: LEVO500T91 PO
[2024-05-19 11:23] LABS: Urine Bacteria None Seen /hpf (None Seen); Urine WBC None Seen /hpf (0 - 3)
[2024-05-19 11:33] LABS: Urine Blood Negative /uL (Negative); Urine Clarity Clear (Clear); Urine Color Light-Yellow (Yellow); Urine Mucus FEW (None Seen); Urine Protein, UAD Negative (Negative); Urine Specific Gravity 1.011 (1.001-1.035); Urine Urobilinogen Normal (Negative)
[2024-05-19 11:45] LABS: Anion Gap 7 (5-15); Carbon Dioxide 27 mmol/L (20-30); Chloride 106 mmol/L (98-107); Potassium 4.3 mmol/L (3.5-5.1); Sodium 140 mmol/L (136-145)
[2024-05-19 11:46] LABS: Calcium 10.1 mg/dL (8.5-10.1)
[2024-05-19 11:51] LABS: BUN/Creatinine Ratio 13.6 (10.0-20.0); Blood Urea Nitrogen 14 mg/dL (9-23); Cholesterol 202 mg/dL (< 200); Glucose 90 mg/dL (74-106); Triglycerides 175 mg/dL (< 150)
[2024-05-19 11:52] LABS: LDL Cholesterol 121 mg/dL (< 100)
[2024-05-19 11:53] LABS: HDL Cholesterol 57 mg/dL (40-59)
== END | disposition home or self-care (01) ==
LOC: LAB 11:14
PROVIDERS: ATTEND Internal Medicine
DX: I10 Essential (primary) hypertension (principal); E78.5 Hyperlipidemia, unspecified; E11.69 Type 2 diabetes mellitus with other specified complication
CPT/HCPCS: 36415; 80048; 80061; 81001; 83036

== ENCOUNTER → 2024-07-28 | Outpatient (CLI) | payer OTHER ==
[2024-07-28 14:31] LABS: Chloride 103 mmol/L (98-107); Potassium 3.9 mmol/L (3.5-5.1); Sodium 139 mmol/L (136-145)
[2024-07-28 14:32] LABS: Anion Gap 4 (5-15); Carbon Dioxide 32 mmol/L (20-30)
[2024-07-28 14:33] LABS: Calcium 10.4 mg/dL (8.7-10.4)
[2024-07-28 14:36] LABS: Creatinine, Urine 123.04 mg/dL (30.0-125.0)
[2024-07-28 14:38] LABS: BUN/Creatinine Ratio 17.2 (10.0-20.0); Blood Urea Nitrogen 20 mg/dL (9-23); Glucose 108 mg/dL (74-106)
== END | disposition home or self-care (01) ==
LOC: LAB 13:08
PROVIDERS: ATTEND Internal Medicine
DX: E11.69 Type 2 diabetes mellitus with other specified complication (principal)
CPT/HCPCS: 36415; 80048; 82043; 82570

== ENCOUNTER → 2024-08-27 | Outpatient (CLI) | payer OTHER ==
[2024-08-27 10:30] LABS: Cholesterol 194 mg/dL (< 200); LDL Cholesterol 119 mg/dL (< 100)
[2024-08-27 10:31] LABS: Triglycerides 227 mg/dL (< 150)
[2024-08-27 10:33] LABS: HDL Cholesterol 54 mg/dL (40-59)
== END | disposition home or self-care (01) ==
LOC: LAB 08:47
PROVIDERS: ATTEND Internal Medicine
DX: Z12.11 Encounter for screening for malignant neoplasm of colon (principal); E78.5 Hyperlipidemia, unspecified; E11.9 Type 2 diabetes mellitus without complications
CPT/HCPCS: 36415; 80061; 82270; 83036

== ENCOUNTER → 2025-01-24 | Outpatient (CLI) | payer OTHER ==
[2025-01-24 10:27] LABS: Anion Gap 6 (5-15); Carbon Dioxide 29 mmol/L (20-31); Chloride 104 mmol/L (98-107); Potassium 4.5 mmol/L (3.5-5.1); Sodium 139 mmol/L (136-145)
[2025-01-24 10:33] LABS: BUN/Creatinine Ratio 12.5 (10.0-20.0); Blood Urea Nitrogen 15 mg/dL (9-23)
[2025-01-24 10:34] LABS: Calcium 10.8 mg/dL (8.7-10.4); Glucose 172 mg/dL (74-106)
[2025-01-24 10:50] LABS: Creatinine, Urine 161.29 mg/dL (30.0-125.0)
== END | disposition home or self-care (01) ==
LOC: LAB 09:14
PROVIDERS: ATTEND Internal Medicine
DX: E11.9 Type 2 diabetes mellitus without complications (principal)
CPT/HCPCS: 36415; 80048; 82043; 82570